=== PATIENT | male | born 1995 | race Caucasian/White ===

== ENCOUNTER 2021-06-09 11:39 | Emergency (ER) | payer SELFPAY ==
[~2021-06-09] VITALS: Ht 172.7 cm; Wt 72.0 kg
[2021-06-09 11:41] VITALS: BP 132/90
== END 2021-06-09 11:56 | disposition home or self-care (01) ==
LOC: ER 11:39
DX: S30.812A Abrasion of penis, initial encounter (principal); X58.XXXA Exposure to other specified factors, initial encounter; Y93.89 Activity, other specified; Y92.89 Other specified places as the place of occurrence of the external cause; Y99.8 Other external cause status
CPT/HCPCS: 99281